=== PATIENT | male | born 1995 | race Caucasian/White ===

== ENCOUNTER 2022-07-14 19:55 | Emergency (ER) | payer OTHER ==
[~2022-07-14] VITALS: Ht 180.3 cm; Wt 103.6 kg
[2022-07-14 20:13] VITALS: BP 147/94; TEMP 98.2
[2022-07-14 21:47] VITALS: PULSE 74
== END 2022-07-14 21:49 | disposition home or self-care (01) ==
LOC: COL.ER 19:55
DX: L50.9 Urticaria, unspecified (principal)
CPT/HCPCS: J1100